=== PATIENT | male | born 1945 | race Caucasian/White ===

== ENCOUNTER 2020-12-02 16:59 | Emergency (ER) | payer BC, MEDICARE ==
[~2020-12-02 16:59] MED LIST: AMLODIPINE-BEN1 EAC1 PO; AMLODIPINE-BEN1 EAC5 PO; ASPIR-LOW81 MG PO; DUREZOL5 ML EYEBOTH; ELIQUIS2.5 MG PO; FENOFIBRATE160 MG PO; FLOMAX 0.4 MG0.4 MG PO; GLUCOPHAGE 500500 MG PO; LIPITOR TAB 2020 MG PO; PERCOCET 7.5-31 EACH PO; PROSCAR 5 MG TAB5 MG PO; SYNTHROID 50 M50 MCG PO; VITAMIN D2000 UNIT PO
[2020-12-02 18:13] LABS: HEMOGLOBIN 14.6 gm/dl (14.0-17.5); RED BLOOD COUNT 4.8 M/UL (4.20-5.50); WHITE BLOOD COUNT 5.4 K/UL (4.5-11.0)
[2020-12-02 18:32] LABS: BUN/CREATININE RATIO 15 (0-10)
[2020-12-02] MEDS ORDERED: VENTOLIN HFA 66.7 GM INH (20:02)
[2020-12-02] MEDS ORDERED: LODINE CAP 300300 MG PO (20:02)
== END 2020-12-02 22:40 | disposition home or self-care (01) ==
LOC: ER1 16:59
PROVIDERS: Physician Assistant Medical
DX: Z23 Encounter for immunization (principal); U07.1 COVID-19
CPT/HCPCS: 71045; 80053; 85025; 99285; M0243; U0002